=== PATIENT | female | born 1985 | race Caucasian/White ===

== ENCOUNTER 2017-09-01 09:48 | Inpatient (IN) | payer MEDICAID, OTHER ==
[2017-09-01] MEDS ORDERED: Sodium Chloride 0.9% 2.5 ML Syringe FLUSH PRN (10:19)
[2017-09-01] MEDS ORDERED: Sodium Chloride 0.9% 10 ML Syringe FLUSH PRN (10:19)
[2017-09-01] MEDS: Lactated Ringers 1,000 ML IV SCH ×3 (10:39→22:35)
[2017-09-01] MEDS ORDERED: ceFAZolin/Dextrose,Iso-Osmotic 2 GM/50 ML Duplex Bag IV ONE (11:31)
[2017-09-01] MEDS ORDERED: ePHEDrine 50 MG/ML SDV ONE (11:31)
[2017-09-01] MEDS ORDERED: ceFAZolin 2 GM in Premix Bag 1 BAG IV ONE (11:45)
[2017-09-01] MEDS ORDERED: Citric Acid/Sodium Citrate Solution 30 ML Cup PO SCH (11:45)
--- NOTE | 2017-09-01 11:51 | PCM.PREANE ---
Preanesthetic Assessment - Anesthesia/Transfusion/Family Hx Anesthesia History: Prior Anesthesia Reaction Other Type of Anesthesia Reaction Comment: allergy to morphine in spinal anesthesia Family History of Anesthesia Reaction: No Transfusion History: No Prior Transfusion(s) Intubation History: Unknown - Review of Systems General: No Symptoms Pulmonary: No Symptoms Cardiovascular: No Symptoms Gastrointestinal: No Symptoms Neurological: No Symptoms Other: Reports: None - Physical Assessment Height: 1.68 m Weight: 82.1 kg ASA Class: 2 Mental Status: Alert & Oriented x3 Airway Class: Mallampati = 2 Dentition: Reports: Normal Dentition Thyro-Mental Finger Breadths: 3 Mouth Opening Finger Breadths: 3 ROM/Head Extension: Full Lungs: Clear to Auscultation, Normal Respiratory Effort Cardiovascular: Regular Rate, Regular Rhythm - Lab Values: Laboratory Last Values WBC 10.39 K/uL (4.0-11.0) 09/01/17 10:38 RBC 3.95 M/uL (4.30-5.90) L 09/01/17 10:38 Hgb 12.9 g/dL (12.0-16.0) 09/01/17 10:38 Hct 36.5 % (36.0-46.0) 09/01/17 10:38 MCV 92.4 fL (80.0-98.0) 09/01/17 10:38 MCH 32.7 pg (27.0-32.0) H 09/01/17 10:38 MCHC 35.3 g/dL (31.0-37.0) 09/01/17 10:38 RDW Std Deviation 44.4 fl (28.0-62.0) 09/01/17 10:38 RDW Coeff of Delores 13 % (11.0-15.0) 09/01/17 10:38 Plt Count 284 K/uL (150-400) 09/01/17 10:38 MPV 9.80 fL (7.40-12.00) 09/01/17 10:38 Nucleated RBC % 0.0 /100WBC 09/01/17 10:38 Nucleated RBCs # 0 K/uL 09/01/17 10:38 Blood Type O POSITIVE 09/01/17 10:38 Antibody Screen NEGATIVE 09/01/17 10:38 - Allergies Allergies/Adverse Reactions: Allergies Allergy/AdvReac Type Severity Reaction Status Date / Time morphine Allergy Anaphylactic Verified 09/01/17 10:24 Shock Unknown /believe Allergy Anaphylactic Uncoded 03/23/15 17:32 "environmental" Shock - Blood Blood Available: No - Anesthesia Plan Pre-Op Medication Ordered: None - Acknowledgements Anesthesia Type Planned: Spinal Pt an Appropriate Candidate for the Planned Anesthesia: Yes Alternatives and Risks of Anesthesia Discussed w Pt/Guardian: Yes Pt/Guardian Understands and Agrees with Anesthesia Plan: Yes PreAnesthesia Questionnaire - Past Health History Medical/Surgical History: Denies Medical/Surgical History HEENT History: Reports: None Cardiovascular History: Reports: Arrhythmia Other Cardiovascular History: takes propranolol for tachycardia Respiratory History: Reports: Other (See Below) Other Respiratory History: hx: Anaphylactic reaction Unkown cause...carries Epi- Pen (feel it is environmental and not a medication) currently has upper respitory infection, started on Zpac 08/27/17 Gastrointestinal History: Reports: None Other Gastrointestinal History: Heartburn in Genitourinary History: Reports: None HYPERBARIC TECH History: Reports: Ectopic , , Spontaneous Neurological History: Reports: Migraines - Past Surgical History HEENT Surgical History: Reports: Adenoidectomy, LASIK, Tonsillectomy Cardiovascular Surgical History: Reports: None Respiratory Surgical History: Reports: None GI Surgical History: Reports: Appendectomy Female Surgical History: Reports: Section, D&C, Other (See Below) Other Female Surgeries/Procedures: x 3 prior, Tubal with Laparoscopy Lt salpingectomy and D & C '2012 Neurological Surgical History: Reports: None Dermatological Surgical History: Reports: None - SUBSTANCE USE Smoking Status *Q: Former Smoker Tobacco Use Within Last Twelve Months: Cigarettes Other Tobacco Use Within Last Twelve Months: 1 cigarette per day Second Hand Smoke Exposure: No Days Per Week of Alcohol Use: 1 Number of Drinks Per Day: 3 Total Drinks Per Week: 3 Recreational Drug Use History: No - HOME MEDS Home Medications: Home Meds EPINEPHrine [Epipen] 0.3 mg IM .PRN PRN #2 pen 11/21/13 [Rx] Magnesium Oxide [Magnesium] 1 tab PO BID 03/23/15 [History] Vit No.78/Iron/Fa [Prenatabs FA] 1 tab PO DAILY 03/23/15 [History] Propranolol [Inderal] 20 mg PO BID 08/27/17 [History] - CURRENT (IN HOUSE) MEDS Current Meds: Current Medications Citric Acid/Sodium Citrate (Bicitra Solution) 30 ml PO .ONCE MEMO Last Admin: 09/01/17 11:44 Dose: 30 ml Cefazolin Sodium/Dextrose 2 gm (/ Premix) 50 mls @ 100 mls/hr IV ONETIME ONE Stop: 09/01/17 12:14 Lactated Ringer's (Ringers, Lactated) 1,000 mls @ 500 mls/hr IV .BOLUS MEMO Last Admin: 09/01/17 11:41 Dose: 500 mls/hr Oxytocin/Sodium Chloride (Oxytocin 30 Unit/500 Ml-Ns) 30 unit in 500 mls @ 250 mls/hr IV TITRATE MEMO Sodium Chloride (Saline Flush) 10 ml FLUSH ASDIRECTED PRN PRN Reason: Keep Vein Open Sodium Chloride (Saline Flush) 2.5 ml FLUSH ASDIRECTED PRN PRN Reason: Keep Vein Open Discontinued Medications Cefazolin Sodium/Dextrose (Ancef) Confirm Administered Dose 2 gm IV .STK-MED ONE Stop: 09/01/17 11:32 Ephedrine Sulfate (Ephedrine Sulfate) Confirm Administered Dose 50 mg .ROUTE .STK-MED ONE Stop: 09/01/17 11:32
[2017-09-01] MEDS ORDERED: Oxytocin/0.9 % Sodium Chloride 30 UNIT/500 ML BAG IV SCH (12:00)
[2017-09-01] MEDS ORDERED: HYDROmorphone 2 MG/ML SDV ONE (12:27)
[2017-09-01] MEDS ORDERED: HYDROmorphone 2 MG/ML SDV IVPUSH PRN (12:55)
[2017-09-01] MEDS ORDERED: Acetaminophen/oxyCODONE 325-5 MG Tab PO PRN (13:12)
[2017-09-01] MEDS ORDERED: HYDROmorphone/Normal Saline 6 MG/30 ML PCA Vial IV PRN (13:12)
[2017-09-01] MEDS ORDERED: Lanolin 100% Cream 7 GM Tube TOP PRN (13:12)
[2017-09-01] MEDS ORDERED: diphenhydrAMINE 50 MG/ML SDV IVPUSH PRN (13:12)
[2017-09-01] MEDS ORDERED: Bisacodyl 10 MG Supp RECTAL PRN (13:12)
[2017-09-01] MEDS ORDERED: Acetaminophen 1,000 MG in Premix Bag 1 BAG IV SCH (13:20)
--- NOTE | 2017-09-01 13:26 | PCM.OPNOTE ---
- General Post-Op/Procedure Note Date of Surgery/Procedure: 09/01/17 Operative Procedure(s): Repeat section Findings: Male , wt pending, Apgars 9 and 9. Grossly normal appearing uterus, tube and ovaries. Normal placenta with 3 vessel cord Pre Op Diagnosis: IUP 39 weeks, Previous C- section, declined TOLAC Post-Op Diagnosis: Same Anesthesia Technique: Spinal Primary Surgeon: Karol Chenum Output, Urine Amount: 525 EBL in mLs: 600 Complications: None Condition: Good
[2017-09-01] MEDS ORDERED: Ketorolac 30 MG/ML SDV ONE (13:35)
[2017-09-01] MEDS: Ketorolac 30 MG/ML SDV IVPUSH SCH ×2 (13:38→19:26)
--- NOTE | 2017-09-01 13:54 | PCM.POSTAN ---
POST ANESTHESIA ASSESSMENT - MENTAL STATUS Mental Status: Alert, Oriented - RESPIRATORY Respiratory Status: Respiratory Rate WNL, Airway Patent, O2 Saturation Stable - CARDIOVASCULAR CV Status: Pulse Rate WNL, Blood Pressure Stable - GASTROINTESTINAL GI Status: No Symptoms - PAIN Pain Score: 0 (well controlled) - POST OP HYDRATION Hydration Status: Adequate & Stable - OBSERVATIONS Free Text/Narrative:: pt doing well postop - may tx to OB for phase II recovery
[2017-09-01] MEDS: Ondansetron 4 MG/2 ML SDV IV PRN ×2 (16:17→20:01)
[2017-09-01] MEDS: Acetaminophen 1,000 MG in Premix Bag 1 BAG IV PRN (20:05)
[2017-09-01] MEDS: Docusate Sodium 100 MG Cap PO SCH (20:09)
--- NOTE | 2017-09-01 21:43 | OR ---
SURGEON: Karol Parker MD DATE OF PROCEDURE: 09/01/2017 PREOPERATIVE DIAGNOSES: 1. Term at 39 weeks' gestation. 2. Repeat elective section. 3. History of three prior sections. POSTOPERATIVE DIAGNOSES: 1. Term at 39 weeks' gestation. 2. Repeat elective section. 3. History of three prior sections. 4. Delivered. PROCEDURE: Repeat low transverse section via Pfannenstiel. ANESTHESIA: Spinal. ESTIMATED BLOOD LOSS: 600 mL. IV FLUIDS: 2000 mL of crystalloid. URINE OUTPUT: 525 mL, clear at the end of the procedure. COMPLICATIONS: None. CONDITION: Stable to the recovery room. INDICATION: A 32-year-old G6, P3-0-2-3, at 39 weeks' gestation, repeat elective section due to a history of three prior sections. FINDINGS: Male in cephalic presentation. Clear amniotic fluid, no nuchal cord. Weight pending. scores of 9 and 9 at 1 and 5 minutes respectively. Grossly looking uterus, right tube (history of left salpingectomy), and ovaries. Grossly normal placenta with 3-vessel cord. DESCRIPTION OF PROCEDURE: The patient was taken to the operating room, where spinal anesthesia was performed and found to be adequate. She was then prepped and draped in the usual sterile fashion in dorsal supine position with a leftward tilt. SCDs were in place. 2 g of Ancef were given. Appropriate time-out was held. A Pfannenstiel skin incision was made with a scalpel through her old incision and carried through to the underlying layer of fascia with the Bovie. The fascia was incised in the midline and the incision was extended laterally with the Bovie. The superior aspect of the fascial incision was grasped with Abbie clamps, elevated, and underlying rectus muscles were dissected off with the Bovie. Attention was turned to the inferior aspect of this incision, which in similar fashion, was grasped, tented up with Abbie clamps, and the underlying rectus muscle was dissected off with the Bovie. The rectus muscle was then grasped in the midline with two Allis clamps, elevated, and then until the parietal peritoneum was reached and entered sharply. This peritoneal defect was then extended upwards and downwards with good visualization of the internal organs and the bladder and then, it was further extended laterally by stretching. A self- retaining Edgardo O retractor was placed into the abdominal cavity. The vesicouterine peritoneum was identified, grasped with pickups, and entered sharply with the Metzenbaum scissors, and this incision was then extended laterally and a bladder flap was created digitally. The lower uterine segment was then incised in a transverse fashion and was extended upwards and downwards bluntly. The infant's head was then lifted out of the pelvis and delivered atraumatically followed by the shoulders and the body. The baby cried spontaneously at and was vigorous. The cord was double clamped and cut, and the was handed over to the awaiting nursery team. Cord blood and gas samples were obtained. The placenta was delivered spontaneously by massage. The uterus was cleaned of all clots and debris. The hysterotomy site was repaired in two layers using 0 Vicryl suture. The first layer was repaired in a locked running fashion and a second imbricating layer was performed to obtain excellent hemostasis. The paracolic gutters were cleaned of all clots and debris. The hysterotomy site was examined and found to have excellent hemostasis. The Edgardo O retractor was then removed. The edges of the peritoneum were identified and this layer was closed with 2-0 Vicryl. The muscular layer was reapproximated with same suture. The subfascial tissues were examined and found to have excellent hemostasis. The fascia was reapproximated with 0 Vicryl in a running fashion. The subcuticular tissues were irrigated and made hemostatic with electrocautery. The skin was then closed with 4-0 Monocryl using subcuticular stitches. The patient tolerated the procedure well. All sponge, needle, and instrument counts were correct at the end of the procedure. The patient was taken to the recovery room in a stable condition with the baby as she continues to perform [id number]. ADUMVIV / MODL /[id number] YOSSI
[2017-09-02] MEDS: Ketorolac 30 MG/ML SDV IVPUSH SCH ×3 (01:34→13:39)
[2017-09-02] MEDS: Acetaminophen 1,000 MG in Premix Bag 1 BAG IV PRN (02:08)
[2017-09-02] MEDS: Ondansetron 4 MG/2 ML SDV IV PRN (03:17)
[2017-09-02] MEDS: Lactated Ringers 1,000 ML IV SCH (07:47)
[2017-09-02] MEDS: Docusate Sodium 100 MG Cap PO SCH ×2 (09:16→22:04)
[2017-09-02] MEDS: Acetaminophen/oxyCODONE 325-5 MG Tab PO PRN ×4 (09:18→22:04)
--- NOTE | 2017-09-02 12:27 | PCM.PNPP ---
- General Info Date of Service: 09/02/17 Subjective Update: POD#1, s/p RLTCS Functional Status: Reports: Pain Controlled, Tolerating Diet, Ambulating, Urinating, Incentive Spirometry - Review of Systems General: Denies: Fever, Weakness, Malaise HEENT: Denies: Headaches Pulmonary: Denies: Shortness of Breath, Pleuritic Chest Pain Cardiovascular: Denies: Chest Pain, Palpitations, Dyspnea on Exertion Gastrointestinal: Denies: Abdominal Pain Genitourinary: Denies: Dysuria, Incontinence, Flank Pain Neurological: Denies: Dizziness, Numbness Psychiatric: Denies: Confusion, Depression, Mood Lability - Patient Data Vital Signs - Most Recent: Last Vital Signs Temp 37.5 C 09/02/17 08:30 Pulse 74 09/02/17 08:30 Resp 16 09/02/17 08:30 BP 124/82 09/02/17 08:30 Pulse Ox 96 09/02/17 08:30 Weight - Most Recent: 181 lb I&O - Last 24 Hours: Intake & Output 09/01/17 09/02/17 09/02/17 22:59 06:59 14:59 Intake Total 2350 Output Total 3600 Balance -1250 Lab Results - Last 24 Hours: Laboratory Results - last 24 hr 09/01/17 09/02/17 Range/Units 12:33 06:17 Hgb 12.0 (12.0-16.0) g/dL Hct 34.8 L (36.0-46.0) % Cord ABG pH 7.349 (7.18-7.38) Cord ABG Base Excess -2 (-10--2) Cord VBG pH 7.420 (7.25-7.45) Cord VBG Base Excess -3 (-10--2) Med Orders - Current: Current Medications Bisacodyl (Dulcolax) 10 mg RECTAL .ONCE PRN PRN Reason: Constipation Diphenhydramine HCl (Benadryl) 25 mg IVPUSH Q6H PRN PRN Reason: Itching or Nausea Docusate Sodium (Colace) 100 mg PO BID MEMO Last Admin: 09/02/17 09:16 Dose: 100 mg Emollient Ointment (Lansinoh Hpa) 0 gm TOP ASDIRECTED PRN PRN Reason: Sore Nipples Acetaminophen 1,000 mg/ Premix 100 mls @ 400 mls/hr IV .ONETIME [facility] Last Admin: 09/01/17 13:40 Dose: 400 mls/hr Lactated Ringer's (Ringers, Lactated) 1,000 mls @ 125 mls/hr IV ASDIRECTED MEMO Last Admin: 09/02/17 07:47 Dose: 125 mls/hr Ibuprofen (Motrin) 800 mg PO Q8H PRN PRN Reason: mild pain or fever Ketorolac Tromethamine (Toradol) 30 mg IVPUSH Q6H MEMO Stop: 09/02/17 13:16 Last Admin: 09/02/17 07:52 Dose: 30 mg Ondansetron HCl (Zofran) 4 mg IV Q4H PRN PRN Reason: Nausea/Vomiting Last Admin: 09/02/17 03:17 Dose: 4 mg Oxycodone/Acetaminophen (Percocet 325-5 Mg) 1 tab PO Q4H PRN PRN Reason: Pain (moderate 4-6) Oxycodone/Acetaminophen (Percocet 325-5 Mg) 2 tab PO Q4H PRN PRN Reason: Pain (moderate 4-6) Last Admin: 09/02/17 09:18 Dose: 2 tab Discontinued Medications Cefazolin Sodium/Dextrose (Ancef) Confirm Administered Dose 2 gm IV .STK-MED ONE Stop: 09/01/17 11:32 Citric Acid/Sodium Citrate (Bicitra Solution) 30 ml PO .ONCE MEMO Last Admin: 09/01/17 11:44 Dose: 30 ml Ephedrine Sulfate (Ephedrine Sulfate) Confirm Administered Dose 50 mg .ROUTE .STK-MED ONE Stop: 09/01/17 11:32 Hydromorphone HCl (Dilaudid) Confirm Administered Dose 2 mg .ROUTE .STK-MED ONE Stop: 09/01/17 12:28 Hydromorphone HCl (Dilaudid) 0.5 mg IVPUSH .Q10MIN PRN PRN Reason: Pain Stop: 09/01/17 14:15 Hydromorphone HCl (Dilaudid [employer] 6 Mg In Ns 30 Ml) 0 mg IV ASDIRECTED PRN; Protocol PRN Reason: Pain Last Admin: 09/01/17 14:03 Dose: 6 mg Cefazolin Sodium/Dextrose 2 gm (/ Premix) 50 mls @ 100 mls/hr IV ONETIME ONE Stop: 09/01/17 12:14 Lactated Ringer's (Ringers, Lactated) 1,000 mls @ 500 mls/hr IV .BOLUS MEMO Last Admin: 09/01/17 11:41 Dose: 500 mls/hr Oxytocin/Sodium Chloride (Oxytocin 30 Unit/500 Ml-Ns) 30 unit in 500 mls @ 250 mls/hr IV TITRATE MEMO Acetaminophen 1,000 mg/ Premix 100 mls @ 400 mls/hr IV Q6H PRN PRN Reason: Pain Last Admin: 09/02/17 02:08 Dose: 400 mls/hr Acetaminophen (Ofirmev) Confirm Administered Dose 100 mls @ as directed IV .STK- MED ONE Stop: 09/01/17 13:39 Ketorolac Tromethamine (Toradol) Confirm Administered Dose 30 mg .ROUTE .STK- MED ONE Stop: 09/01/17 13:36 Last Admin: 09/01/17 14:45 Dose: Not Given Sodium Chloride (Saline Flush) 10 ml FLUSH ASDIRECTED PRN PRN Reason: Keep Vein Open Sodium Chloride (Saline Flush) 2.5 ml FLUSH ASDIRECTED PRN PRN Reason: Keep Vein Open - Interaction Support Person: - Recovery Exam Fundal Tone: Firm Fundal Level: 1 Fingerbreadths Below Umbilicus Fundal Placement: Midline Lochia Amount: Small Lochia Color: Rubra/Red Perineum Description: Intact, Minimal Bruising/Swelling Episiotomy/Laceration: None Bladder Status: Indwelling Catheter in Place Urinary Elimination: Voided - Problem List & Annotations (1) delivery delivered SNOMED Code(s): 709768247 Code(s): O82 - ENCOUNTER FOR DELIVERY WITHOUT INDICATION Status: Acute Current Visit: No - Problem List Review Problem List Initiated/Reviewed/Updated: Yes - My Orders Last 24 Hours: My Active Orders 09/01/17 13:12 Patient Status [ADT] Routine Ambulate [RC] PER UNIT ROUTINE Bedrest [RC] ASDIRECTED Communication Order [RC] PER UNIT ROUTINE Communication Order [RC] PER UNIT ROUTINE Communication Order [RC] Per Unit Routine May Shower [RC] ASDIRECTED RT Incentive Spirometry [RC] Q2HWA Urinary Catheter Removal [RC] Per Unit Routine Vital Signs [RC] PER UNIT ROUTINE Acetaminophen/oxyCODONE [Percocet 325-5 MG] 1 tab PO Q4H PRN Acetaminophen/oxyCODONE [Percocet 325-5 MG] 2 tab PO Q4H PRN Bisacodyl [Dulcolax] 10 mg RECTAL .ONCE PRN Lanolin [Lansinoh HPA] See Dose Instructions TOP ASDIRECTED PRN Ondansetron [Zofran] 4 mg IV Q4H PRN diphenhydrAMINE [Benadryl] 25 mg IVPUSH Q6H PRN Abdominal Binder [OM.PC] Urgent Assess Lochia [WOMSER] Per Unit Routine Assess Uterine Involution [WOMSER] Per Unit Routine Breast Pump [WOMSER] Per Unit Routine Peripheral IV Discontinue [OM.PC] Routine Sequential Compression Device [OM.PC] Per Unit Routine Resuscitation Status Routine 09/01/17 13:13 Intake and Output [RC] Q4H Notify Provider Intake and Out [RC] ASDIRECTED Notify Provider Vital Signs [RC] ASDIRECTED 09/01/17 13:15 Ketorolac [Toradol] 30 mg IVPUSH Q6H Lactated Ringers [Ringers, Lactated] 1,000 ml IV ASDIRECTED 09/01/17 21:00 Docusate Sodium [Colace] 100 mg PO BID 09/01/17 Dinner Regular Diet [DIET] 09/02/17 19:30 Ibuprofen [Motrin] 800 mg PO Q8H PRN - Assessment Assessment:: POD#1 s/p RLTCS, stable and afebrile Doing well - Plan Plan:: Continue routine care and anticipate discharge tomorrow
--- NOTE | 2017-09-02 15:02 | PCM48HPAN ---
Post Anesthesia Note - EVALUATION WITHIN 48HRS OF ANESTHETIC Vital Signs in Normal Range: Yes Patient Participated in Evaluation: Yes Respiratory Function Stable: Yes Airway Patent: Yes Cardiovascular Function Stable: Yes Hydration Status Stable: Yes Pain Control Satisfactory: Yes Nausea and Vomiting Control Satisfactory: Yes Mental Status Recovered: Yes Resp Rate: 16
[2017-09-02] MEDS: Ondansetron 4 MG Tab.DIS PO PRN (15:54)
[2017-09-03] MEDS: Ibuprofen 800 MG Tab PO PRN ×2 (00:13→08:00)
[2017-09-03] MEDS: Acetaminophen/oxyCODONE 325-5 MG Tab PO PRN (03:12)
--- NOTE | 2017-09-03 07:53 | PCM.PNPP ---
- General Info Date of Service: 09/03/17 Subjective Update: POD#2, s/p RLTCS Functional Status: Reports: Pain Controlled, Tolerating Diet, Ambulating, Urinating - Review of Systems General: Denies: Fever, Weakness, Chills HEENT: Denies: Headaches Pulmonary: Denies: Shortness of Breath, Pleuritic Chest Pain, Cough Cardiovascular: Denies: Chest Pain, Palpitations, Dyspnea on Exertion Gastrointestinal: Denies: Abdominal Pain Genitourinary: Denies: Dysuria, Flank Pain - General Info Date of Service: 09/03/17 - Patient Data Vital Signs - Most Recent: Last Vital Signs Temp 36.2 C 09/03/17 04:00 Pulse 74 09/03/17 04:00 Resp 16 09/03/17 04:00 BP 115/79 09/03/17 04:00 Pulse Ox 98 09/03/17 04:00 Weight - Most Recent: 181 lb Med Orders - Current: Current Medications Bisacodyl (Dulcolax) 10 mg RECTAL .ONCE PRN PRN Reason: Constipation Diphenhydramine HCl (Benadryl) 25 mg IVPUSH Q6H PRN PRN Reason: Itching or Nausea Docusate Sodium (Colace) 100 mg PO BID [facility] Last Admin: 09/02/17 22:04 Dose: 100 mg Emollient Ointment (Lansinoh Hpa) 0 gm TOP ASDIRECTED PRN PRN Reason: Sore Nipples Acetaminophen 1,000 mg/ Premix 100 mls @ 400 mls/hr IV .ONETIME [facility] Last Admin: 09/01/17 13:40 Dose: 400 mls/hr Lactated Ringer's (Ringers, Lactated) 1,000 mls @ 125 mls/hr IV ASDIRECTED [facility] Last Admin: 09/02/17 07:47 Dose: 125 mls/hr Ibuprofen (Motrin) 800 mg PO Q8H PRN PRN Reason: mild pain or fever Last Admin: 09/03/17 00:13 Dose: 800 mg Ondansetron HCl (Zofran) 4 mg IV Q4H PRN PRN Reason: Nausea/Vomiting Last Admin: 09/02/17 03:17 Dose: 4 mg Ondansetron HCl (Zofran Odt) 4 mg PO Q8H PRN PRN Reason: Nausea/Vomiting Last Admin: 09/02/17 15:54 Dose: 4 mg Oxycodone/Acetaminophen (Percocet 325-5 Mg) 1 tab PO Q4H PRN PRN Reason: Pain (moderate 4-6) Oxycodone/Acetaminophen (Percocet 325-5 Mg) 2 tab PO Q4H PRN PRN Reason: Pain (moderate 4-6) Last Admin: 09/03/17 03:12 Dose: 2 tab Discontinued Medications Cefazolin Sodium/Dextrose (Ancef) Confirm Administered Dose 2 gm IV .STK-MED ONE Stop: 09/01/17 11:32 Citric Acid/Sodium Citrate (Bicitra Solution) 30 ml PO .ONCE MEMO Last Admin: 09/01/17 11:44 Dose: 30 ml Ephedrine Sulfate (Ephedrine Sulfate) Confirm Administered Dose 50 mg .ROUTE .STK-MED ONE Stop: 09/01/17 11:32 Hydromorphone HCl (Dilaudid) Confirm Administered Dose 2 mg .ROUTE .STK-MED ONE Stop: 09/01/17 12:28 Hydromorphone HCl (Dilaudid) 0.5 mg IVPUSH .Q10MIN PRN PRN Reason: Pain Stop: 09/01/17 14:15 Hydromorphone HCl (Dilaudid [employer] 6 Mg In Ns 30 Ml) 0 mg IV ASDIRECTED PRN; Protocol PRN Reason: Pain Last Admin: 09/01/17 14:03 Dose: 6 mg Cefazolin Sodium/Dextrose 2 gm (/ Premix) 50 mls @ 100 mls/hr IV ONETIME ONE Stop: 09/01/17 12:14 Lactated Ringer's (Ringers, Lactated) 1,000 mls @ 500 mls/hr IV .BOLUS MEMO Last Admin: 09/01/17 11:41 Dose: 500 mls/hr Oxytocin/Sodium Chloride (Oxytocin 30 Unit/500 Ml-Ns) 30 unit in 500 mls @ 250 mls/hr IV TITRATE MEMO Acetaminophen 1,000 mg/ Premix 100 mls @ 400 mls/hr IV Q6H PRN PRN Reason: Pain Last Admin: 09/02/17 02:08 Dose: 400 mls/hr Acetaminophen (Ofirmev) Confirm Administered Dose 100 mls @ as directed IV .STK- MED ONE Stop: 09/01/17 13:39 Ketorolac Tromethamine (Toradol) 30 mg IVPUSH Q6H MEMO Stop: 09/02/17 13:16 Last Admin: 09/02/17 13:39 Dose: 30 mg Ketorolac Tromethamine (Toradol) Confirm Administered Dose 30 mg .ROUTE .STK- MED ONE Stop: 09/01/17 13:36 Last Admin: 09/01/17 14:45 Dose: Not Given Sodium Chloride (Saline Flush) 10 ml FLUSH ASDIRECTED PRN PRN Reason: Keep Vein Open Sodium Chloride (Saline Flush) 2.5 ml FLUSH ASDIRECTED PRN PRN Reason: Keep Vein Open - Interaction Infant Disposition, : in Room with Family Infant Interaction: Not Applicable Feeding: Breastfed Infant; Nursed Well Support Person: - Recovery Exam Fundal Tone: Firm Fundal Level: 1 Fingerbreadths Below Umbilicus Fundal Placement: Midline Lochia Amount: Small Lochia Color: Rubra/Red Perineum Description: Intact, Minimal Bruising/Swelling Episiotomy/Laceration: None Bladder Status: Voiding Urinary Elimination: Voided - Exam General: Alert GI/Abdominal Exam: Normal Bowel Sounds, No Mass Extremities: Non-Tender, Pedal Edema Wound/Incisions: Healing Well Psy/Mental Status: Alert, Normal Affect, Normal Mood - Problem List & Annotations (1) delivery delivered SNOMED Code(s): 322591061 Code(s): O82 - ENCOUNTER FOR DELIVERY WITHOUT INDICATION Status: Acute Current Visit: No - Problem List Review Problem List Initiated/Reviewed/Updated: Yes - My Orders Last 24 Hours: My Active Orders 09/02/17 15:47 Ondansetron [Zofran ODT] 4 mg PO Q8H PRN 09/02/17 19:30 Ibuprofen [Motrin] 800 mg PO Q8H PRN - Assessment Assessment:: POD#2 s/p RLTCS, stable and afebrile Doing well - Plan Plan:: Discharge instructions reviewed Nothing in the vagina for 6 weeks Incision care reviewed Bleeding and infection precautions reviewed Continue PNV. Pain meds- Opioids and Ibuprofen sent to pharmacy S/S of blues vs depression reviewed Follow up in the clinic in 2 and 6 weeks
[2017-09-03] MEDS: Docusate Sodium 100 MG Cap PO SCH (08:00)
[2017-09-03] MEDS: Ondansetron 4 MG Tab.DIS PO PRN (08:27)
[2017-09-03 09:34] VITALS: BP 112/76
== END 2017-09-03 10:07 | disposition home or self-care (01) | DRG 766 ==
LOC: MW.OB 09:48
PROVIDERS: ADMIT Obstetrics & Gynecology; ATTEND Obstetrics & Gynecology
PROC: 10D00Z1 Extraction of Products of Conception, Low, Open Approach (ICD-10-PCS; principal; 2017-09-01)
DX: O34.211 Maternal care for low transverse scar from previous cesarean delivery (principal); Z37.0 Single live birth; Z3A.39 39 weeks gestation of pregnancy; Z88.5 Allergy status to narcotic agent
CPT/HCPCS: 01961; 36415; 59025; 82803; 85014; 85018; 85027; 86850; 86900; 86901; A9270-GY; J0690; J1170; J1885; J2405; J7120

== ENCOUNTER 2018-05-26 10:49 | Emergency (ER) | payer OTHER ==
--- NOTE | 2018-05-26 11:21 | EDM.PDOC ---
ED HPI GENERAL MEDICAL PROBLEM - General Chief Complaint: Cardiovascular Problem Stated Complaint: SVT Time Seen by Provider: 05/26/18 11:11 - History of Present Illness INITIAL COMMENTS - FREE TEXT/NARRATIVE: HISTORY AND PHYSICAL: History of present illness: Patient is a 32-year-old white female history of SVT who presents with an episode of SVT that did spontaneously stopped prior to arrival she has no other complaints. She has been seen by cardiology for this and is in the process of considering ablation therapy. Review of systems: As per history of present illness and below otherwise all systems reviewed and negative. Past medical history: As per history of present illness and as reviewed below otherwise noncontributory. Surgical history: As per history of present illness and as reviewed below otherwise noncontributory. Social history: No reported history of drug or alcohol abuse. Family history: As per history of present illness and as reviewed below otherwise noncontributory. Physical exam: HEENT: Atraumatic, normocephalic, pupils reactive, negative for conjunctival pallor or scleral icterus, mucous membranes moist, throat clear, neck supple, nontender, trachea midline. Lungs: Clear to auscultation, breath sounds equal bilaterally, chest nontender. Heart: S1S2, regular, negative for clicks, rubs, or JVD. Abdomen: Soft, nondistended, nontender. Negative for masses or hepatosplenomegaly. Negative for costovertebral tenderness. Pelvis: Stable nontender. Genitourinary: Deferred. Rectal: Deferred. Extremities: Atraumatic, negative for cords or calf pain. Neurovascular unremarkable. Neuro: Awake, alert, oriented. Cranial nerves II through XII unremarkable. Cerebellum unremarkable. Motor and sensory unremarkable throughout. Exam nonfocal. Diagnostics: EKG Therapeutics: None Impression: #1 history of SVT resolved #2 medical screening exam Definitive disposition and diagnosis as appropriate pending reevaluation and review of above. - Related Data Allergies Allergy/AdvReac Type Severity Reaction Status Date / Time morphine Allergy Anaphylactic Verified 05/26/18 10:54 Shock Unknown /believe Allergy Anaphylactic Uncoded 03/23/15 17:32 "environmental" Shock Home Meds: Home Meds EPINEPHrine [Epipen] 0.3 mg IM .PRN PRN #2 pen 11/21/13 [Rx] Magnesium Oxide [Magnesium] 1 tab PO BID 03/23/15 [History] Vit No.78/Iron/Fa [Prenatabs FA] 1 tab PO DAILY 03/23/15 [History] Past Medical History - Past Health History Medical/Surgical History: Denies Medical/Surgical History HEENT History: Reports: None Cardiovascular History: Reports: Arrhythmia Other Cardiovascular History: takes propranolol for tachycardia Respiratory History: Reports: Other (See Below) Other Respiratory History: hx: Anaphylactic reaction Unkown cause...carries Epi- Pen (feel it is environmental and not a medication) currently has upper respitory infection, started on Zpac 08/27/17 Gastrointestinal History: Reports: None Other Gastrointestinal History: Heartburn in Genitourinary History: Reports: None [employer]IAN History: Reports: Ectopic , , Spontaneous Musculoskeletal History: Reports: None Neurological History: Reports: Migraines Psychiatric History: Reports: None Endocrine/Metabolic History: Reports: None Hematologic History: Reports: None Immunologic History: Reports: None Oncologic (Cancer) History: Reports: None Dermatologic History: Reports: None - Infectious Disease History Infectious Disease History: Reports: Chicken Pox, Other (See Below) Other Infectious Disease History: childhood - Past Surgical History Head Surgeries/Procedures: Reports: None HEENT Surgical History: Reports: Adenoidectomy, LASIK, Tonsillectomy Cardiovascular Surgical History: Reports: None Respiratory Surgical History: Reports: None GI Surgical History: Reports: Appendectomy Female Surgical History: Reports: Section, D&C, Oophorectomy, Other (See Below) Other Female Surgeries/Procedures: x 4 prior, Tubal with Laparoscopy Lt salpingectomy and D & C Endocrine Surgical History: Reports: None Neurological Surgical History: Reports: None Musculoskeletal Surgical History: Reports: None Oncologic Surgical History: Reports: None Dermatological Surgical History: Reports: None Social & Family History - Family History Family Medical History: Noncontributory Cardiac: Reports: High Cholesterol, Hypertension Respiratory: Reports: COPD GI: Reports: Hepatitis, Other (See Below) Other GI Family History: celiac disease OBGYN: Reports: Oncologic: Reports: Colon - Tobacco Use Smoking Status *Q: Never Smoker Second Hand Smoke Exposure: No - Caffeine Use Caffeine Use: Reports: None - Recreational Drug Use Recreational Drug Use: No ED ROS GENERAL - Review of Systems Review Of Systems: ROS reveals no pertinent complaints other than HPI. ED EXAM, GENERAL - Physical Exam Exam: See Below (See dictation) Course - Vital Signs Last Recorded V/S: Last Vital Signs Temp 36.2 C 05/26/18 10:55 Pulse 77 05/26/18 10:55 Resp 18 05/26/18 10:55 BP 125/81 05/26/18 10:55 Pulse Ox 99 05/26/18 10:55 Departure - Departure Time of Disposition: 11:20 Disposition: Home, Self-Care 01 Condition: Good Clinical Impression: Paroxysmal supraventricular tachycardia, Encounter for medical screening examination Referrals: Sherley Ramos NP [Primary Care Provider] - Additional Instructions: The following information is given to patients seen in the emergency department who are being discharged to home. This information is to outline your options for follow-up care. We provide all patients seen in our emergency department with a follow-up referral. The need for follow-up, as well as the timing and circumstances, are variable depending upon the specifics of your emergency department visit. If you don't have a primary care physician on staff, we will provide you with a referral. We always advise you to contact your personal physician following an emergency department visit to inform them of the circumstance of the visit and for follow-up with them and/or the need for any referrals to a consulting specialist. The emergency department will also refer you to a specialist when appropriate. This referral assures that you have the opportunity for followup care with a specialist. All of these measure are taken in an effort to provide you with optimal care, which includes your followup. Under all circumstances we always encourage you to contact your private physician who remains a resource for coordinating your care. When calling for followup care, please make the office aware that this follow-up is from your recent emergency room visit. If for any reason you are refused follow-up, please contact the [facility] emergency department at and asked to speak to the emergency department charge nurse. Follow-up cardiology as discussed activity as tolerated return as needed as discussed
[2018-05-26 15:11] VITALS: BP 120/73
== END 2018-05-26 11:38 | disposition home or self-care (01) ==
LOC: MW.ED 10:49
DX: I47.1 Supraventricular tachycardia (principal); Z88.5 Allergy status to narcotic agent
CPT/HCPCS: 93005; 99282-25; 99284